=== PATIENT | male | born 1965 ===

== ENCOUNTER 2025-01-22 13:49 | Outpatient (CLI) | payer OTHER | END 2025-01-22 23:59 | disposition home or self-care (01) | LOC: MRI 13:49 | PROVIDERS: ATTEND Nurse Practitioner Family | DX: M47.816 Spondylosis without myelopathy or radiculopathy, lumbar region (principal); M43.16 Spondylolisthesis, lumbar region; M48.061 Spinal stenosis, lumbar region without neurogenic claudication; M54.50 Low back pain, unspecified; M51.9 Unspecified thoracic, thoracolumbar and lumbosacral intervertebral disc disorder; M51.A0 Intervertebral annulus fibrosus defect, lumbar region, unspecified size | CPT/HCPCS: 72148 ==